=== PATIENT | male | born 1955 | race Caucasian/White ===

== ENCOUNTER 2024-12-18 07:30 | Outpatient (RCR) | payer BC, SELFPAY ==
[2024-12-18 07:55] VITALS: BP 153/86
[2024-12-18] MEDS: RECLAST 100 IV (08:03)
[2024-12-18 08:50] VITALS: BP 171/90
== END 2024-12-19 10:30 | disposition home or self-care (01) ==
LOC: OID 07:30
PROVIDERS: ATTENDING PHYSICIAN Internal Medicine
DX: M81.0 Age-related osteoporosis without current pathological fracture (principal)
CPT/HCPCS: 96365; J3489